=== PATIENT | female | born 1970 | race Caucasian/White ===

== ENCOUNTER 2022-12-17 14:10 | Emergency (ER) | payer BC ==
[~2022-12-17] VITALS: Ht 162.6 cm; Wt 87.4 kg
[2022-12-17 14:15] VITALS: BP 135/89; PULSE 110; RESP 16; TEMP 98.2; O2SAT 100
[2022-12-17 15:28] LABS: ALANINE AMINOTRANSFERASE 38 U/L (12-78); ALBUMIN 4.2 G/DL (3.4-5.0); ALBUMIN/GLOBULIN RATIO 1.1 (1.1-1.5); ALKALINE PHOSPHATASE 75 IU/L (46-116); ANION GAP 11 (8-16); ASPARTATE AMINO TRANSFERASE 26 U/L (10-37); BILIRUBIN,TOTAL 0.5 MG/DL (0.1-1.0); BLOOD UREA NITROGEN 16 MG/DL (7-18); CHLORIDE 101 MMOL/L (99-107); GLUCOSE 103 MG/DL (70-104); POTASSIUM 4.1 MMOL/L (3.5-5.1); PRO BRAIN NATRIURETIC PEPTIDE 46 PG/ML (0-125); SODIUM 134 MMOL/L (135-145); TOTAL PROTEIN 7.9 G/DL (6.4-8.2)
[2022-12-17 15:47] LABS: BUN/CREATININE RATIO 19.8 (10.0-20.0); CALCIUM 9.8 MG/DL (8.5-10.1); CREATININE 0.81 MG/DL (0.40-0.90); eCRCL 71 ML/MIN; eGFR 75 ML/MIN
[2022-12-17 16:52] LABS: BASOPHILS % (AUTO) 0.4 % (0-1); EOSINOPHILS % (AUTO) 0.3 % (0-6); HEMOGLOBIN 14.9 g/dl (12.0-16.0); LYMPHOCYTES # (AUTO) 2.2 X10'3 (1.1-4.8); LYMPHOCYTES % (AUTO) 21.9 % (21-51); MEAN CORPUSCULAR HEMOGLOBIN 30.6 PG (27.0-31.0); MEAN PLATELET VOLUME 7.3 FL (7.4-10.4); MONOCYTES # (AUTO) 0.4 X10'3 (0-0.9); MONOCYTES % (AUTO) 4.4 % (2-12); NEUTROPHILS # (AUTO) 7.2 X10'3 (1.8-7.7); PLATELET COUNT 329 X10'3 (140-440); RED BLOOD COUNT 4.89 X10'6 (4.20-5.60); RED CELL DISTRIBUTION WIDTH 13.5 % (11.5-14.5); WHITE BLOOD COUNT 9.9 X10'3 (4.5-11.0)
[2022-12-17 18:58] LABS: BILIRUBIN,URINE NEGATIVE (Neg); CLARITY,URINE CLEAR (Clear); COLOR,URINE YELLOW (Yellow); GLUCOSE, URINE NEGATIVE (Neg); KETONES,URINE >=80 mg/dl (Neg); LEUKOCYTE ESTERASE ,URINE NEGATIVE (Neg); NITRITES, URINE NEGATIVE (Neg); OCCULT BLOOD,URINE NEGATIVE (Neg); PROTEIN,URINE NEGATIVE (Neg); UROBILINOGEN,URINE 0.2 E.U/dL (0.2-1.0)
[2022-12-17 19:03] LABS: UA COLLECTION TYPE CLN CATCH MIDSTREAM
[2022-12-18 00:20] LABS: THYROID STIMULATING HORMONE 1.43 ulU/ml (0.34-4.50)
== END 2022-12-17 15:00 | disposition left against medical advice (07) ==
LOC: ER 14:11
DX: H81.393 Other peripheral vertigo, bilateral (principal); R11.2 Nausea with vomiting, unspecified; R53.1 Weakness
CPT/HCPCS: 36415; 71045; 80053; 81003; 83880; 84443; 84484; 85025; 93005; 99285

== ENCOUNTER 2023-01-16 20:11 | Emergency (ER) | payer BC, MEDICAID ==
[~2023-01-16] VITALS: Ht 165.1 cm; Wt 87.7 kg
[2023-01-16 21:27] VITALS: BP 131/85; PULSE 90; TEMP 98; O2SAT 98
[2023-01-16 21:30] VITALS: RESP 17
[2023-01-16 22:37] LABS: BASOPHILS % (AUTO) 0.2 % (0-1); EOSINOPHILS % (AUTO) 0.4 % (0-6); HEMATOCRIT 41.6 % (35.0-45.0); HEMOGLOBIN 14.2 g/dl (12.0-16.0); LYMPHOCYTES # (AUTO) 2.1 X10'3 (1.1-4.8); LYMPHOCYTES % (AUTO) 18.8 % (21-51); MEAN CORPUSCULAR HEMOGLOBIN 30.6 PG (27.0-31.0); MEAN CORPUSCULAR HGB CONC 34.2 g/dL (33.0-36.5); MEAN CORPUSCULAR VOLUME 89.4 FL (78-98); MONOCYTES # (AUTO) 0.5 X10'3 (0-0.9); MONOCYTES % (AUTO) 4.7 % (2-12); NEUTROPHILS # (AUTO) 8.4 X10'3 (1.8-7.7); NEUTROPHILS % (AUTO) 75.9 % (42-75); PLATELET COUNT 310 X10'3 (140-440); RED BLOOD COUNT 4.65 X10'6 (4.20-5.60); WHITE BLOOD COUNT 11.1 X10'3 (4.5-11.0)
[2023-01-16 22:40] LABS: ALBUMIN 3.9 G/DL (3.4-5.0); ANION GAP 6 (8-16); BLOOD UREA NITROGEN 16 MG/DL (7-18); BUN/CREATININE RATIO 18.4 (10.0-20.0); CALCIUM 9.7 MG/DL (8.5-10.1); CHLORIDE 100 MMOL/L (99-107); CREATININE 0.87 MG/DL (0.40-0.90); GLUCOSE 191 MG/DL (70-104); POTASSIUM 3.7 MMOL/L (3.5-5.1); SODIUM 137 MMOL/L (135-145); TOTAL CARBON DIOXIDE 31.4 MMOL/L (24-32); eCRCL 69 ML/MIN; eGFR 69 ML/MIN
--- NOTE | 2023-01-16 23:19 | NUR ---
I HAVE REVIEWED AND AGREE W/ EDIE, LVNS ASSESSMENT
== END 2023-01-16 23:32 | disposition home or self-care (01) ==
LOC: ER 20:12
DX: H93.19 Tinnitus, unspecified ear (principal); R73.9 Hyperglycemia, unspecified; R03.0 Elevated blood-pressure reading, without diagnosis of hypertension; F41.9 Anxiety disorder, unspecified; R42 Dizziness and giddiness; G47.00 Insomnia, unspecified
CPT/HCPCS: 36415; 80048; 84484; 85025; 93005; 99284

== ENCOUNTER 2023-02-09 03:31 | Emergency (ER) | payer MEDICAID ==
[~2023-02-09] VITALS: Ht 162.6 cm; Wt 84.5 kg
[2023-02-09 04:03] VITALS: BP 136/82; PULSE 104; RESP 17; TEMP 97.7; O2SAT 100
== END 2023-02-09 04:54 | disposition left against medical advice (07) ==
LOC: ER 03:32
DX: R42 Dizziness and giddiness (principal); I10 Essential (primary) hypertension
CPT/HCPCS: 93005; 99283